=== PATIENT | female | born 1965 | race Hispanic/Latino ===

== ENCOUNTER → 2017-05-18 | Outpatient (CLI) | payer BC ==
--- NOTE | 2017-06-01 16:20 | Diagnostic Imaging Report ---
#[id number] - MGSCRBIL #BILATERAL DIGITAL SCREENING MAMMOGRAM WITH CAD: 05/18/2017 CLINICAL: Routine screening. Comparison is made to exams dated: 03/25/2016 mammogram and 09/26/2013 mammogram - [facility]. Current study contains 5 films. The tissue of both breasts is heterogeneously dense. This may lower the sensitivity of mammography. Current study was also evaluated with a Computer Aided Detection (CAD) system. There is a benign calcification in both breasts. No significant masses, calcifications, or other findings are seen in either breast. There has been no significant interval change. IMPRESSION: BENIGN There is no mammographic evidence of malignancy. A 1 year screening mammogram is recommended. The patient will be notified by letter of the results. Benjamin Botello Jr., D.O. cw/:06/01/2017 09:52:42 Technology Strategist: Cynthia ABDALLA(Sabina)(Laura), [facility] letter sent: Compared to Prior B9 Mammogram BI-RADS: 2 Benign
== END ==
LOC: MAMMO 09:13
PROVIDERS: ATTEND Obstetrics & Gynecology
DX: Z12.31 Encounter for screening mammogram for malignant neoplasm of breast (principal)
CPT/HCPCS: G0202

== ENCOUNTER → 2018-05-24 | Outpatient (CLI) | payer BC ==
--- NOTE | 2018-06-05 08:37 | Diagnostic Imaging Report ---
#[id number] - MGSCRBIL #BILATERAL DIGITAL SCREENING MAMMOGRAM WITH CAD: 05/24/2018 CLINICAL: Routine screening. Comparison is made to exams dated: 05/18/2017 mammogram and 09/26/2013 mammogram - [facility]. Current study contains 4 films. The tissue of both breasts is heterogeneously dense. This may lower the sensitivity of mammography. Current study was also evaluated with a Computer Aided Detection (CAD) system. There is a benign calcification in both breasts. No significant masses, calcifications, or other findings are seen in either breast. There has been no significant interval change. IMPRESSION: BENIGN There is no mammographic evidence of malignancy. A 1 year screening mammogram is recommended. The patient will be notified by letter of the results. Benjamin funez/james:06/05/2018 07:57:27 Chief Radiation Therapist: Cynthia ABDALLA(R)(M), [facility] letter sent: Compared to Prior B9 Mammogram BI-RADS: 2 Benign
== END ==
LOC: MAMMO 09:06
PROVIDERS: ATTEND Specialist
DX: Z12.31 Encounter for screening mammogram for malignant neoplasm of breast (principal)
CPT/HCPCS: 77067

== ENCOUNTER 2018-12-06 22:26 | Emergency (ER) | payer BC ==
[~2018-12-06] VITALS: Ht 152.4 cm; Wt 59.0 kg
--- OUTSIDE RECORDS SUMMARY | 2018-12-06 22:29 | XMS REPORT ---
[facility] Address Unknown Phone Unavailable Care Team Providers Care Terry Cloth Cutter Hand Name Role Phone CAROLE CABA Unavailable Unavailable JEAN CLAUDE MENDOSA Unavailable Unavailable Problems This patient has no known problems. Allergies, Adverse Reactions, Alerts This patient has no known allergies or adverse reactions. Medications This patient has no known medications. Results Test Description Test Time Test Comments Text Results Atomic Results Result Comments MAMMOGRAPHY DIGITAL SCR BILAT 2018-05-24 10:13:00 [place] [address] Patient Name: OLIVE WILLSON MR #: [id number] : 1965 Age/Sex: 52/F Req #: [id number] Adm Physician: Ordered by: CAROLE CABA MD Report #: [id number] Location: MAMMO Room/Bed: Procedure: [id number] MG/MAMMOGRAPHY DIGITAL SCR BILAT Exam Date: 05/24/18 Exam Time: 0911 REPORT STATUS: Signed #[id number] - MGSCRBIL #BILATERAL DIGITAL SCREENING MAMMOGRAM WITH CAD: 05/24/2018 CLINICAL: Routine screening. Comparison is made to exams dated: 05/18/2017 mammogram and 09/26/2013 mammogram - [facility]. Current study contains 4 films. The tissue of both breasts is heterogeneously dense. This may lower the sensitivity of mammography. Current study was also evaluated with a Computer Aided Detection (CAD) system. There is a benign calcification in both breasts. No significant masses, calcifications, or other findings are seen in either breast. There has been no significant interval change. IMPRESSION: BENIGN There is no mammographic evidence of malignancy. A 1 year screening mammogram is recommended. The patient will be notified by letter of the results. Luke funez/hernan:06/05/2018 07:57:27 Community Worker: Cynthia ABDALLA(R)(M), [facility] letter sent: Compared to Prior B9 Mammogram BI- RADS: 2 Benign Dictated By: LUKE BOTELLO DO 6 Transcribed By: HERNAN on 06/05/18756 COPY TO: CAROLE CABA MD MAMMOGRAPHY DIGITAL SCR BILAT [place] [address] Patient Name: OLIVE WILLSON MR #: [id number] : 1965 Age/Sex: 51/F Req #: [id number] [facility] Physician: Ordered by: JEAN CLAUDE MENDOSA MD Report #: [id number] Location: MAMMO Room/Bed: Procedure: [id number] MG/MAMMOGRAPHY DIGITAL SCR BILAT Exam Date: 05/18/17 Exam Time: 0916 REPORT STATUS: Signed #[id number] - MGSCRBIL #BILATERAL DIGITAL SCREENING MAMMOGRAM WITH CAD: 05/18/2017 CLINICAL: Routine screening. Comparison is made to exams dated: 03/25/2016 mammogram and 09/26/2013 mammogram - [facility]. Current study contains 5 films. The tissue of both breasts is heterogeneously dense. This may lower the sensitivity of mammography. Current study was also evaluated with a Computer Aided Detection (CAD) system. There is a benign calcification in both breasts. No significant masses, calcifications, or other findings are seen in either breast. There has been no significant interval change. IMPRESSION: BENIGN There is no mammographic evidence of malignancy. A 1 year screening mammogram is recommended. The patient will be notified by letter of the results. Luke Botello Jr., D.O. cw/:06/01/2017 09:52:42 Community Worker: Cynthia ABDALLA(Sabina)(M), [facility] letter sent: Compared to Prior B9 Mammogram BI-RADS: 2 Benign Dictated By: LUKE BOTELLO DO 0952 Transcribed By: HERNAN on 06/01/17951 COPY TO: JEAN CLAUDE MENDOSA MD
== END 2018-12-06 23:50 | disposition home or self-care (01) ==
LOC: FSED 22:26
DX: R30.0 Dysuria (principal); R10.2 Pelvic and perineal pain; N30.01 Acute cystitis with hematuria
CPT/HCPCS: 99282

== ENCOUNTER 2024-09-30 00:20 | Emergency (ER) | payer BC, OTHER ==
[~2024-09-30] VITALS: Ht 152.4 cm; Wt 59.0 kg
[2024-09-30 00:45] VITALS: PULSE 76; RESP 18; TEMP 97.4
[2024-09-30] MEDS ORDERED: CEFDINIR300 MG PO (00:59)
[2024-09-30] MEDS ORDERED: IBUPROFEN600 MG PO (00:59)
[2024-09-30] MEDS ORDERED: LIDOCAINE HCL 1% 2 ML AMP ONE (01:12)
[2024-09-30] MEDS: CEFTRIAXONE 1 GM VIAL IM ONE (01:14)
[2024-09-30] MEDS: ACETAMINOPHEN 325 MG TAB PO ONE (01:16)
[2024-09-30 01:35] VITALS: BP 133/66; PULSE 76; RESP 18; TEMP 97.6; O2SAT 97
== END 2024-09-30 01:35 | disposition home or self-care (01) ==
LOC: FSED 00:25
DX: R30.0 Dysuria (principal); N30.90 Cystitis, unspecified without hematuria
CPT/HCPCS: 81003; 96372; 99283; J0696; J2003